=== PATIENT | female | born 1955 | race Caucasian/White ===

== ENCOUNTER → 2020-10-24 13:27 | Outpatient (CLI) | payer MEDICARE, OTHER, SELFPAY ==
--- NOTE | ~2020-10-24 | MM_ITS ---
EXAMINATION: MM screening [facility] BI w er[facility] HISTORY: Screening TECHNIQUE: Craniocaudal and mediolateral oblique 3-D tomosynthesis images were obtained and synthetic 2-D images were generated. CAD analysis was submitted and interpreted. COMPARISON: Comparison to multiple prior studies sequentially, with oldest reviewed study dated 09/21. BREAST PARENCHYMAL COMPOSITION: There are scattered areas of fibroglandular density. FINDINGS: There is no evidence of suspicious mass, calcification, or architectural distortion to sugg est malignancy in either breast. There has been no suspicious interval change. IMPRESSION: 1. No mammographic evidence of malignancy. 2. Recommend routine screening mammography in one year. BI-RADS Category 1: Negative Reviewed, dictated and finalized at location A.
== END ==
PROVIDERS: PCP Internal Medicine; Visit Provider Obstetrics & Gynecology
DX: Z12.31 Encounter for screening mammogram for malignant neoplasm of breast (principal)
CPT/HCPCS: 77063; 77067

== ENCOUNTER → 2021-12-24 15:28 | Outpatient (CLI) | payer MEDICARE, BC, SELFPAY ==
--- NOTE | ~2021-12-24 | XR_ITS ---
EXAM: XR_CERV2-3V_CR DATE: 12/24/2021 15:54 HISTORY: Cervicalgia . COMPARISON: None available. FINDINGS: Craniocervical association and atlantoaxial joint are aligned, with minimal degenerative c hange. ACDF at C5-6 with interbody bone plug. No prevertebral soft tissue swelling. 4 mm retrolisthes is of C4 on C5. Vertebral body heights are maintained. Severe disc space narrowing at C4-5. Multileve l facet sclerosis. IMPRESSION: Grade 2 retrolisthesis and severe degenerative disc disease at C4-5. Uncomplicated appear ing C5-6 ACDF. Multilevel facet arthropathy. Reviewed, dictated and finalized at location K. IMPRESSION: Grade 2 retrolisthesis and severe degenerative disc disease at C4-5 . Uncomplicated appearing C5-6 ACDF. Multilevel facet arthropathy.
--- NOTE | ~2021-12-24 | XR_ITS ---
XR shoulder LT min 2V DATE: 12/24/2021 15:54 INDICATION: Left shoulder pain TECHNIQUE: 4 views COMPARISON: None FINDINGS: There is severe joint space narrowing and prominent humeral head spurring consistent with s evere left glenohumeral osteoarthritis. Normal alignment at the acromioclavicular and glenohumeral joints. No fracture or dislocation, perios teal reaction or bone destruction or abnormal soft tissue calcification is evident. Lower part of cervical hardware for probable surgical spinal fusion is noted on one of the images. IMPRESSION: Severe glenohumeral osteoarthritis Reviewed, dictated and finalized at location B.
== END ==
PROVIDERS: PCP Internal Medicine; Visit Provider Nurse Practitioner Family
DX: M50.321 Other cervical disc degeneration at C4-C5 level (principal); M19.012 Primary osteoarthritis, left shoulder
CPT/HCPCS: 72040; 73030

== ENCOUNTER → 2022-03-19 14:54 | Outpatient (CLI) | payer MEDICARE, SELFPAY ==
--- NOTE | ~2022-03-19 | MM_ITS ---
EXAMINATION: MM screening [facility] BI w erich HISTORY: Screening mammogram TECHNIQUE: Craniocaudal and mediolateral oblique 3-D tomosynthesis images were obtained and synthetic 2-D images were generated. CAD analysis was submitted and interpreted. COMPARISON: 10/24/2020, 06/30/2017, 01/31/2016 BREAST PARENCHYMAL COMPOSITION: There are scattered areas of fibroglandular density. FINDINGS: No suspicious mass, calcification, or architectural distortion are identified in either analilia ast to suggest malignancy. There has been no suspicious interval change. IMPRESSION: 1. No mammographic evidence of malignancy. 2. Recommend routine screening mammography in one year. BI-RADS Category 1: Negative Reviewed, dictated and finalized at location A.
== END ==
PROVIDERS: PCP Internal Medicine; Visit Provider Internal Medicine
DX: Z12.31 Encounter for screening mammogram for malignant neoplasm of breast (principal)
CPT/HCPCS: 77063; 77067

== ENCOUNTER → 2023-06-11 10:14 | Outpatient (CLI) | payer MEDICARE, BC, SELFPAY ==
--- NOTE | ~2023-06-11 | DEXA_ITS ---
Bone Density Report Name: KRISTA GARCIA Age: 68 Sex: Female Ethnicity: White Date of : 1955 Indication: osteopenia; height loss; postmenopausal Referring Provider: Yvette, [place] Study: Bone densitometry was performed. Exam Date: June 11, 2023 Accession number: [id number] Bone Density: Region BMD T-score Z-score Classification AP Spine (L1-L4) 1.066 0.2 2.2 Normal Femoral Neck (Left) 0.754 -0.9 0.9 Normal Total Hip (Left) 0.806 -1.1 0.3 Osteopenia Femoral Neck (Right) 0.709 -1.3 0.5 Osteopenia Total Hip (Right) 0.756 -1.5 -0.1 Osteopenia Total Hip Mean 0.781 -1.3 0.1 Osteopenia World Health Organization criteria for BMD impression classify patients as: Normal (T-score at or above -1.0), Osteopenia (T-score between -1.0 and -2.5), or Osteoporosis (T-score at or below -2.5). 10-year Fracture Risk(1): Major Osteoporotic Fracture 9.3% Hip Fracture 1.0% Reported Risk Factors: [place] (), Neck BMD=0.709, BMI=25.0 (1) FRAX(R) Version 3.08. Fracture probability calculated for an untreated patient. Fracture probability may be lower if the patient has received treatment. Previous Exams: Region Exam Age BMD T-score BMD Change BMD Change Date g/cm2 vs Baseline vs Previous AP Spine(L1-L4) 06/11/2023 68 1.066 0.2 0.057* 0.065* 01/31/2016 60 1.000 -0.4 -0.009 -0.009 12/16/2012 57 1.009 -0.3 Total Hip(Left) 06/11/2023 68 0.806 -1.1 -0.023 -0.007 01/31/2016 60 0.813 -1.1 -0.016 -0.016 12/16/2012 57 0.829 -0.9 Total Hip(Right) 06/11/2023 68 0.756 -1.5 -0.032* -0.013 01/31/2016 60 0.769 -1.4 -0.019 -0.019 12/16/2012 57 0.788 -1.3 *Denotes significance at 95% confidence level, LSC for AP Spine = 0.022 g/cm2, LSC for Total Hip = 0.027 g/cm2 Clinical Information Provided by Patient: Has used the following medications: Vitamin D, Calcium Patient maximum height was 64.0 Menopause Age: 49 No regular weight bearing exercise Drinks caffeinated beverages Onset of menses at age 11 Number of children 2 Impression: The patient has low bone mass, based on the Right Total Hip T-score. The patient has an estimated ten-year risk of hip fracture of 1% and an estimated ten-year risk of major fracture of 9.3%, based on the WHO FRAX algorithm. No significant bone loss was observed. Annalisa
== END ==
PROVIDERS: PCP Internal Medicine; Visit Provider Internal Medicine
DX: M85.852 Other specified disorders of bone density and structure, left thigh (principal); M85.851 Other specified disorders of bone density and structure, right thigh
CPT/HCPCS: 77080

== ENCOUNTER 2025-01-04 10:33 | Inpatient (IN) | payer MEDICARE, SELFPAY ==
[2025-01-04] VITALS (20 sets, daily range): BP systolic 160–188; BP diastolic 76–88; PULSE 66–81; RESP 12–19; TEMP 36.4–36.6; O2SAT 92–98; BMI 25.9
--- NOTE | 2025-01-04 | ECHO_ITS ---
Patient Info Name: Aleyda Tyson Age: 69 years : 1955 Gender: Female Ht: 62 in Wt: 141 lbs BSA: 1.69 m2 HR: 76 bpm BP: 161 / 88 mmHg Heart Rhythm: Sinus Rhythm Technical Quality: Good Exam Date: 01/04/2025 1:40 PM Patient Status: I Admit Date: 01/04/2025 Exam Type: CA echo dop bubble study w con Complete two-dimentional, color flow and Doppler transthoracic echocardiogram is performed with agitated saline and with contrast to opacify the left ventricle and to improve the delineation of the left ventricle endocardial borders. Staff Referring Physician: Khadijah Flynn Nut Steamer: Ariela Garcias Attending Provider: Kulwant Michelle Contrast/Agitated Saline Contrast/Ag. Saline: Definity Amount: 2.00 ml Administered By: Ariela Garcias Existing IV Access: Yes IV Access Condition: patent with no signs of infiltration Contrast/Ag. Saline: Agitated Saline Amount: 20.00 ml Summary 1. Left ventricular chamber dimension is mildly enlarged. 2. Left ventricular systolic function is normal, estimated at 55-60. 3. There is mildly increased left ventricular wall thickness. 4. Left ventricular septal wall motion is abnormal with septal motion related to bundle branch block. 5. The left ventricular diastolic function is grade I diastolic dysfunction. 6. The inferoseptal wall, basal inferior wall, mid inferior wall, basal anteroseptal, and mid anteroseptal are hypokinetic. 7. Left atrial chamber dimension is mildly enlarged. 8. Intact interatrial septum visualized by color flow and agitated saline imaging. 9. There is mild mitral valve regurgitation. 10. There is mild tricuspid valve regurgitation. 11. There is mild pulmonic regurgitation. Left Ventricle Left ventricular chamber dimension is mildly enlarged. Left ventricular systolic function is normal, estimated at 55-60. There is mildly increased left ventricular wall thickness. Left ventricular septal wall motion is abnormal with septal motion related to bundle branch block. The left ventricular diastolic function is grade I diastolic dysfunction. The inferoseptal wall, basal inferior wall, mid inferior wall, basal anteroseptal, and mid anteroseptal are hypokinetic. All other shepherd appear normal. Right Ventricle Right ventricular chamber dimension is normal. Right ventricular systolic function is normal. Left Atria Left atrial chamber dimension is mildly enlarged. Right Atria Right atrial chamber dimension is normal. Atrial Septum Intact interatrial septum visualized by color flow and agitated saline imaging. Aortic Valve The aortic valve is trileaflet. There is mild aortic valve sclerosis. There is no aortic valve stenosis. There is trace aortic valve regurgitation. Pulmonic Valve The pulmonic valve is normal. There is no pulmonic valve stenosis. There is mild pulmonic regurgitation. Mitral Valve The mitral valve has normal leaflets. There is no mitral valve stenosis. There is mild mitral valve regurgitation. Tricuspid Valve The tricuspid valve leaflets are normal. There is no significant tricuspid valve stenosis. There is mild tricuspid valve regurgitation. No pulmonary hypertension, estimated pulmonary arterial systolic pressure is 29 mmHg. Pericardium/Pleural The pericardium appears normal. There is no pericardial effusion. Inferior Vena Cava Normal inferior vena cava with >50% collapse upon inspiration consistent with normal right atrial pressure, 5 mmHg. Aorta The aortic root size at the sinus of Valsalva is normal. Left Ventricular Outflow Tract Name Value Normal LVOT 2D LVOT Diameter 1.8 cm LVOT Doppler LVOT Peak Velocity 106 cm/s LVOT Peak Gradient 5 mmHg LVOT Mean Gradient 3 mmHg LVOT VTI 23 cm LVOT Stroke Volume 54 ml LVOT CO 4.1 l/min LVOT CI 2.4 l/min/m2 Pulmonic Valve Name Value Normal RVOT Doppler RVOT Peak Velocity 60 cm/s RVOT Peak Gradient 1 mmHg PV Doppler PV Peak Velocity 105 cm/s PV Peak Gradient 4 mmHg Mitral Valve Name Value Normal MV Diastolic Function MV E Peak Velocity 35 cm/s MV A Peak Velocity 72 cm/s MV E/A 0.5 MV Decel Time (PW) 365 ms MV Annular TDI MV E/e' (Septal) 5.1 MV E/e' (Lateral) 5.5 MV E/e' (Average) 5.3 Tricuspid Valve Name Value Normal Estimated PAP/RSVP RA Pressure 5 mmHg <=5 PA Systolic Pressure 29 mmHg <36 Aortic Valve Name Value Normal AV Doppler AV Peak Velocity 136 cm/s AV Peak Gradient 7 mmHg AV Area (Cont Eq Aaron) 1.9 cm2 AV DI (Aaron) 0.78 AV Regurgitation 2D LVOT Area 2.4 cm2 Ventricles Name Value Normal LV Dimensions 2D/MM IVS Diastolic Thickness (2D) 0.7 cm 0.6-1.0 LVID Diastole (2D) 4.2 cm 3.8-5.2 LVIW Diastolic Thickness (2D) 1.2 cm 0.6-0.9 LVID Systole (2D) 3.0 cm 2.2-3.5 LVOT Diameter 1.8 cm LV Mass (2D Cubed) 120.94 g 67.00-162.00 LV Mass Index (2D Cubed) 72 g/m2 43-95 Relative Wall Thickness (2D) 0.56 <=0.42 LV Fractional Shortening/Ejection Fraction 2D/MM LV Fractional Shortening (2D) 29 % 27-45 LV EF (2D Teichholz) 56 % LV Diastolic Volume (4C MOD) 97 ml LV EF (4C MOD) 49 % LV Diastolic Volume (2C MOD) 66 ml LV EF (2C MOD) 46 % LV Diastolic Volume (BP MOD) 82 ml 46-106 LV Diastolic Volume Index (BP MOD) 49 ml/m2 29-61 LV Systolic Volume (BP MOD) 45 ml 14-42 LV Systolic Volume Index (BP MOD) 27 ml/m2 8-24 LV EF (BP MOD) 45 % 54-74 LV Diastolic Length (4C) 7.2 cm LV Systolic Length (4C) 5.8 cm LV Stroke Volume (4C MOD) 47 ml Atria Name Value Normal LA Dimensions LA Volume (4C A-L) 29 ml LA Volume (BP A-L) 33 ml RA Dimensions RA Systolic Major Rice Length (4C) 4.1 cm 2.2-2.8 RA Area (4C) 8.5 cm2 <=18.0 Wall Motion Scoring Wall Motion Scoring Index: 1.41 Report Signatures
--- NOTE | ~2025-01-04 | XR_ITS ---
Exam: X-ray chest one view portable Clinical history: Weakness. TECHNIQUE: A single upright AP portable frontal image of the chest was obtained. Comparisons: None available. FINDINGS: There is a 1.3 cm pulmonary nodule in the left midlung. A chest CT is recommended. No pneumothorax. No pleural effusion. No free air under the diaphragm. Small opacities in the lower lungs. IMPRESSION: 1.There is a 1.3 cm pulmonary nodule in the left midlung. A chest CT is recommended. 2. Small opacities in the lower lungs. Differential includes atelectasis/scarring or infiltrates. Reviewed, dictated and finalized at location A. IMPRESSION: 1.There is a 1.3 cm pulmonary nodule in the left midlung. A chest CT is recomme nded. 2. Small opacities in the lower lungs. Differential includes atelectasis/scarri ng or infiltrates.
--- NOTE | ~2025-01-04 | CT_ITS ---
EXAMINATION: CT brain wo con DATE: 01/04/2025 10:54 INDICATION: Weakness TECHNIQUE: Computed tomography (CT) of the head was performed without intravenous contrast. The dose- length product was 605.33 mGy-cm. COMPARISON: None FINDINGS: No acute intracranial hemorrhage. No mass effect. No hydrocephalus. Visualized paranasal sinuses and mastoid air cells are clear. IMPRESSION: 1. No acute intracranial hemorrhage. No mass effect. Reviewed, dictated and finalized at location A.
--- NOTE | ~2025-01-04 | MR_ITS ---
EXAMINATION: MR brain/brain stem wo/w con DATE: 01/05/2025 08:43 INDICATION: Transient ischemic episode TECHNIQUE: Magnetic resonance imaging (MRI) of the brain and brainstem was performed without intraven ous contrast. Sequences included sagittal and axial T1-weighted SE, axial diffusion-weighted FS SE, a xial 3D SWAN, axial T2-weighted FLAIR, and axial T2-weighted FSE. Postcontrast axial and coronal T1-w eighted SE was obtained. Apparent diffusion coefficient (ADC) maps were created. COMPARISON: Head CT and CT angiogram dated 01/04/2025 FINDINGS: There are no areas of restricted diffusion to suggest acute infarction. No intracranial hemorrhage or abnormal intracranial mass lesion. There are scattered areas of nonspecific increased T2-weighted si gnal intensity in the cerebral white matter, predominantly involving the deep and periventricular whi te matter. There are no intraparenchymal signal abnormalities seen on the other pulse sequences. The ventricles are symmetric and normal in size. There are no abnormal extra-axial fluid collections. Willie w voids are seen in the cerebral arteries on the T2-weighted sequences consistent with their expected patency. Visualized orbits and soft tissues are unremarkable. There are no areas of abnormal enhance ment on the post contrast images. IMPRESSION: 1. Normal for age brain MR with no acute intracranial process or abnormally enhancing brain lesions. Reviewed, dictated and finalized at location A. IMPRESSION: 1. Normal for age brain MR with no acute intracranial process or abnormally enh ancing brain lesions.
--- NOTE | ~2025-01-04 | CT_ITS ---
EXAMINATION: CTA brain carotid DATE: 01/04/2025 10:57 CDT INDICATION: Weakness TECHNIQUE: Computed tomographic angiography (CTA) of the head was performed without and with 100 mL O mnipaque-350 intravenous contrast. The dose-length product was 981.39 mGy-cm. Volume-rendered and max imum intensity projection 3D reconstructions of the intracranial arteries were created by the technol ogricardo on a separate workstation. COMPARISON: None. FINDINGS: Anterior cerebral arteries, middle cerebral arteries and posterior cerebral arteries are patent. Basi lar artery and vertebral arteries are grossly unremarkable. Mild atherosclerotic disease in the haresh nous portions of bilateral internal carotid arteries. IMPRESSION: 1. Unremarkable CTA of the brain Reviewed, dictated and finalized at location A.
--- NOTE | 2025-01-04 10:42 | ECG_ITS ---
Test Date: 2025-01-04 11:00:27 Measurements Intervals [place] Rate: 75 P: 70 WA: 164 QRS: -24 QRSD: 128 T: 61 QT: 394 QTc: 442 Interpretive Statements SINUS RHYTHM LEFT BUNDLE BRANCH BLOCK ABNORMAL ECG No previous ECG available for comparison Electronically Signed On 01-04-2025 11:39:45 CDT by Al Zee D.O.
--- OUTSIDE RECORDS SUMMARY | 2025-01-04 10:45 | XMS_ITS | Clinical Summary ---
Author Organization [facility] Care Team Providers Care Melter Supervisor Name Role Phone Unavailable Primary Care Provider Unavailabl e Immunizations Immunization Administration Dates Next Due Covid-19, Mrna, Lnp-s, Pf, 30 Mcg/0.3 Ml Dose (P fizer) 03/01/2021 Social History Tobacco Use Types Packs/Day Years Used Date Smoking Tobacco: Never Assessed Comments Unknown Sex and Gender Information Value Date Recorded Sex Assigned at Not on file Legal Sex Female 11:27 PM CDT Gender Identity Not on file Sexual Orientation Not on file Plan of Treatment Health Maintenance Due Date Last Done Comments Hepatitis C Virus (HCV) Screening 1955 TdaP Immunization 1955 Cologuard 1999 Colonoscopy 1999 Colorectal Cancer Screening 1999 Immunochemical Fecal Occult Blood 1999 Zoster Immunization (2 of 3) 06/19/2014 04/24/2014 SARS-COV-2 Immunization ( season) 2024 03/01/2021, 08/06/2020, 07/15/2020 Influenza Immunization (#1) 01/23/202501/24, 02/20/2019, 02/23/2018, Additional history exists Respiratory Syncytial Virus (RSV) Immunization (Adult) (1 - 1-dose 75+ series) 2029 Pneumococcal Immunization (50+ years) Completed 01/11/2021, 08/01/2019 Hepatitis B Immunization Aged Out No longer eligible based on patient's age to complete this topic Human Papillomavirus (HPV) Immunization Aged Out No longer eligible based on patient's age to complete this topic Meningococcal Immunization (ACWY) Aged Out No longer eligible based on patient's age to complete this topic Rotavirus Immunization Aged Out No lo nger eligible based on patient's age to complete this topic
--- OUTSIDE RECORDS SUMMARY | 2025-01-04 10:45 | XMS_ITS | Encounter Summary ---
Author Organization [facility] Healthcare Address [address] [place] [address] Care Team Providers Care Stripper Latex Name Role Phone Jurgen Crawford MD Primary Care Provider Arielle Duran MD Unavailable [phone] Reason for Visit * Reason Onset Date Comments Medical Question/Miscellaneous 01/04/2025 Encounter Details Date Type Department Care Team (Late st Contact Info) Description 01/04/2025 Telephone [facility] Primary Care at [address] [place] [address] Jurgen Crawford MD [address] [place] [address] [address] [place] [address] Medical Question/Miscellaneous Social History Tobacco Use Types Packs/Day Years Used Date Smoking Tobacco: Former Smokeless Tobacco: Never Alcohol Use Standard Drinks/Week Comments No 0 (1 standard drink = 0.6 oz pur e alcohol) AUDIT-C Answer Date Recorded Q1: How often do you have a drink containing alcohol? Never 03/30/2023 Q2: How many drinks containi ng alcohol do you have on a typical day when you are drinking? Patient does not drink Q3: How often do you have si x or more drinks on one occasion? Never 03/30/2023 PHQ-2 Answer Date Recorded PHQ-2 Total Score (If total score is 3 or more points, staff should administer the PHQ-9) 0 10/10/2024 Personal Safety Answer Date Recorded Have you ever been in or are you currently in a harmful physical or emotional relationship or is someone making you feel afraid or unsafe? 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 Patient wants to make sure Dr Crawford will get her ER visit info from [place]. Does message need to be routed? Yes-Action Needed * Telephone Encounter - Lucreica Quintero - 01/04/2025 10:09 AM CDT Medical Question/Miscellaneous Caller???s Concern: Flor, on HIPAA, stated her mother is not being honest about her symptoms and is also having feet and ankle cramps. Stated she will call back with the patient to report the symptoms. Does message need to be routed? Yes-Action Needed documented in this encounter Plan of Treatment Not on file documented as of this encounter Visit Diagnoses Not on filedocumented in this encounter Care Teams Stripper Latex Relationship Specialty Start Date End Date Jurgen Crawford MD PCP - General 08/22/16 Arielle Duran MD Referring Physician Rheumatology 01/30/22 documented as of this encounter
--- OUTSIDE RECORDS SUMMARY | 2025-01-04 10:45 | XMS_ITS | Clinical Summary ---
Author Organization [facility] A Address [address] [place] [address] Care Team Providers Care Senior Reliability Engineer Name Role Phone Jurgen Crawford MD Primary Care Provider Arielle Duran MD Unavailable [phone] Allergies Active Allergy Reactions Criticality Noted Date Comments Amoxicillin-Pot Clavulanate Other (See comments) Low 06/19/2023 Yeast Infection Cortisone Flushing (skin),Anxiety,Othe r (See comments) High Reaction: Flushing, Anxiety, Bradycardia, Meloxicam Other (See comments) Reaction: rash on tongue, , , Reaction: Mouth Sores, Oxaprozin Anxiety Reaction: Anxiety, Oxycodone Unknown 01/21/2018 Prednisone Other (See comments),Rash Reaction: red, rash, Sulfa (Sulfonamide Antibiotics) Other (See comments),Anaphylax is High Reaction: Other, Anaphylaxis, Sulfanilamide Medications b complex vitamins (VITAMINS B COMPLEX) tablet 0 2 Active cholecalcifero l (VITAMIN D3) 2,000 unit capsule 0 2 Active loratadine 10 mg capsule Active azelastine (ASTELIN) 137 mcg (0.1 %) nasal spray ADMINISTER 2 SPRAYS INTO EACH NOSTRIL 2 TIMES A DAY. 30 mL 11 1 Active naloxone (NARCAN) 4 mg/actuation spray,non-aero carlton Administer 1 spray into affected nostril(s) as needed for opioid reversal or respiratory depression Call 911. Administer a single spray in one nostril. Repeat every 3 minutes as needed if no or minimal response. 1 each 1 2 Active hydroxychloroq uine (PLAQUENIL) 200 mg tablet 3 Active benzonatate (TESSALON) 200 mg capsuleIndicat ions:Acute URI Take 1 capsule (200 mg total) by mouth 3 (three) times a day as needed for cough 30 capsule 4 Active aspirin 81 mg enteric coated tablet Take 1 tablet (81 mg total) by mouth daily 5 06/28/19 26 Active ALPRAZolam (XANAX) 0.5 mg tablet TAKE 1 TABLET BY MOUTH THREE TIMES DAILY NEEDED FOR ANXIETY 90 tablet 5 5 Active omeprazole (PriLOSEC) 40 mg capsule TAKE 1 CAPSULE(40 MG) BY MOUTH DAILY BEFORE BREAKFAST 100 capsule 5 Active tiZANidine (ZANAFLEX) 2 mg tablet Take 1 tablet (2 mg total) by mouth every 6 (six) hours as needed for muscle spasms 60 tablet 3 5 Active metoprolol XL (TOPROL-XL) 100 mg 24 hr tablet TAKE 1 TABLET BY MOUTH EVERY DAY 90 tablet 1 5 03/05/20 25 Active HYDROcodone-ac etaminophen (NORCO) 5-325 mg per tabletIndicati ons:Pain Take 1 tablet by mouth every 6 (six) hours as needed for pain Do not take with alprazolam 30 tablet 5 02/11/20 25 Active HYDROcodone-ac etaminophen (NORCO) 5-325 mg per tabletIndicati ons:Pain Take 1 tablet by mouth every 6 (six) hours as needed for pain Do not take with alprazolam 30 tablet 5 12/12/19 25 Discontin ued(Reord er) Active Problems Problem Noted Date Diagnosed Date 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 Discussed the risks of hypertension. Arthralgia of elbow 12/26/2013 Spondylosis of lumbosacral region 10/08/2013 Overview (08/27/2016): LUMBOSACRAL SPONDYLOSIS Osteoarthritis of cervical spine 10/08/2013 Overview (08/27/2016): CERVICAL SPONDYLOSIS Left bundle branch block (LBBB) 10/23/2009 Overview (08/27/2016): Bundle branch block left Resolved Problems Problem Noted Date Diagnosed Date Resolved Date Bilateral hearing loss due t o cerumen impaction 10/26/2018 10/26/2018 Assessment & Plan (10/26/2018 4:05 PM CDT): Successful cerumen debridement today in clinic. Pt was encouraged to avoid use of OTC Q-tips with discussion of home cleansing techniques as well. Maxillary sinusitis 10/26/2018 10/27/19 19 Assessment & Plan (10/26/2018 3:36 PM CDT): Previous sensitivity to multiple medications. Previously tolerated Ceftin well. Initiating abs along with use of humidifier or vaporizer, antihistamines [id number], nasal rinses, Flonase nasal spray, certainly for sore throat throat lozenges, salt water gargles, and Mucinex with increase fluids to assist with productivity and cough. I also encouraged patient to take antibiotic as prescribed with side effects of medication discussed, to use antibiotics for specific antibiotics as recommended office, and close follow-up outpatient with any worsening or little improvement symptoms. Acute medial meniscus tear of right knee 01/22/2018 11/23/2019 Encounters Date Type Department Care Team Description 01/04/2025 Telephone [facility] Primary Care at [address] [place] [address] Jurgen Crawford MD Medical Question/Miscellaneous 11/01/2024 Orders Only [facility] Primary Care at [address] [place] [phone] Jurgen Crawford MD 11/01/2024 Telephone [facility] Primary Care at [address] [place] [phone] Jurgen Crawford MD Medication Request 10/10/2024 2:30 PM CDT Office Visit [facility] Primary Care at [address] [phone] Jurgen Crawford MD Primary osteoarthritis of right knee (Primary Dx); BMI 23.0-23.9, adult; Benign essential hypertension from Last 3 Months Immunizations Immunization Administration Dates Next Due Flucelvax Influenza Quad 02/22/2018 Influenza, Quad, Adjuvantate d, Intramuscular 03/22/2021 Influenza, Quadrivalent, Rafaela l Culture-based MDCK, Preservative Free, Antibiotic Free, Intramuscular 02/23/2018 Influenza, Quadrivalent, Hig h Dose, Preservative Free, Intrr 02/20/2023,03/08/2022,02/20/2020 Influenza, Quadrivalent, Spl it, Preservative Free, Intramuscular 03/30/2016,04/15/2015 Influenza, Split 07/07/2011 Influenza, Trivalent, Adjuva nted, Intramuscular 03/18/2024 Influenza, Trivalent, High D ose, Split, Preservative Free, Intramuscular 02/20/2019 Influenza, Trivalent, IM (MDV) 05/09/2013,2012 Influenza, Trivalent, Preser vative Free, Intramuscular 03/04/2017 Influenza, Unspecified 01/28/2024(Deferr ed: Patient Refused),01/17/2022(Deferred: Patient Refused),02/20/2020,02/20/2019, 017 Pfizer SARS-CoV-2 Monovalent Vaccination (12+ Yrs) PURPLE 08/06/2020,07/15/2020 Pneumococcal Conjugate PCV 13 08/01/2019 Pneumococcal Polysaccharide PPV23 01/11/2021 RSV Vaccine, Pref, Recombina nt, Subunit, Adjuvanted, PF, IM (Arexvy) 03/18/2024 ZOSTER LIVE 04/24/2014 Surgical History Surgery Date Site/Laterality Comments OTHER SURGICAL HISTORY 2001 ulnar nerve decompression OTHER SURGICAL HISTORY 2001 radial nerve decompression CARPAL TUNNEL RELEASE Right Carpal tunnel release BACK SURGERY Back surgery OTHER SURGICAL HISTORY 2013 back injury: ER Visit OTHER SURGICAL HISTORY sprus removed from elbow Medical History Medical History Date Comments Hx Other Medical 2001 c spine surgery 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 Hx Other Medical 02-ortho Hx Other Medical Abnormal heartb eat Hx Other Medical Neck surgery Hx Other Medical Ulnar nerve dec ompression Gastroesophageal reflux disease GERD Hx Other Medical back injury Hx Other Medical back surg; Comm ents: LNP 07/20/2014 - Family History Medical History Relation Name Comments Diabetes Brother 1 Diabetes mellit us; Heart disease Brother 2 Heart disease; Hypertension Brother 3 Hypertension; Depression Father Depression; Other Father coronary thromb osis; Depression Mother Depression; Diabetes Mother Diabetes mellit us; Heart failure Mother Congestive hea rt failure; Hypertension Mother Hypertension; Diabetes Other 1 Family history of Diabetes mellitus; Heart disease Other 2 Family history of Heart disease; Hypertension Other 3 Family history of Hypertension; Relation Name Status Comments Brother 1 Brother 2 Brother 3 Father Mother Other 1 Other 2 Other 3 Social History Tobacco Use Types Packs/Day Years Used Date Smoking Tobacco: Former Smokeless Tobacco: Never Tobacco Cessation:Counseling Given: Not Answered Alcohol Use Standard Drinks/Week Comments No 0 [...] on file Legal Sex Female 11:55 PM RESIDENCY DIRECTOR Gender Identity Not on file Sexual Orientation Not on file Obstetrics History Last Filed Vital Signs Vital Sign Reading Time Taken Comments Blood Pressure 142/82 10/10/2024 2:17 PM CDT Pulse 76 10/10/2024 2:17 PM CDT Temperature 36.6 C (97.8 F) 10/10/2024 2:17 PM CDT Respiratory Rate 16 10/10/2024 2:17 PM CDT Oxygen Saturation 95% 10/10/2024 2:17 PM CDT Inhaled Oxygen Concentration - - Weight 60.3 kg (133 lb) 10/10/2024 2:17 PM CDT Height 160 cm (5' 3) 10/10/2024 2:17 PM CDT Body Mass Index 23.56 10/10/2024 2:17 PM CDT Plan of Treatment Health Maintenance Due Date Last Done Comments DTaP/Tdap/Td Vaccine (1 - Tdap) 1965 Hepatitis B Screening 02/15/1972 Zoster Vaccine (1 of 2) 06/19/2014 04/24/2014 Breast Cancer Screening-Mammogram 03/19/2023 03/19/2022, 10/24/2020, 01/31/2016 Colon Cancer Screening-Colonoscopy 07/30/2023 07/29/2013, 07/29/2013 Covid-19 Vaccine (7 - Pfizer risk season) 2024 04/01/2024, 04/10/2023, 11/22/2021, Additional history exists Influenza Vaccine (#1) 2025 , 02/20/2023, 03/08/2022, Additional history exists Well Visit 65+ 01/27/2025 01/28/2024, 0801/2023, 01/17/2022, Additional history exists Osteoporosis Screening-Bone Density Scan 06/11/2025 06/11/2023, 01/31/2016 Depression Screening 10/10/2025 10/10/2024, 07/08/2024, 06/28/2024, Additional history exists Fall Risk Assessment 10/10/2025 10/10/2024, 07/08/2024, 06/28/2024, Additional history exists Colon Cancer Screening-CT Colonography Discontinued 07/29/2013, 07/29/2013 Colon Cancer Screening-DNA Stool Discontinued 07/30/19 14, 07/29/2013 Colon Cancer Screening-FIT Discontinued 07/29/2013, Colon Cancer Screening-Sigmoidoscopy Discontinued 07/29/2013, 07/29/2013 Hepatitis C Screening Completed 06/09/2016, 017 Pneumococcal vaccine 65+ Completed 01/11/2021, 01/2020 Procedures Procedure Name Priority Date/Time Associated Diagnosis Comments DEXA AXIAL SKELETON BONE DENSITY 1 OR MORE SITES Schedule Routine, Read Routine (OP Routine) 06/11/2023 SCREENING MAMMOGRAM W ASTER Schedule Routine, Read Routine (OP Routine) 03/19/2022 SERUM HEPATITIS C AB Routine 06/09/2016 9:08 AM RESIDENCY DIRECTOR HM COLONOSCOPY Routine 07/29/2013 from Last 3 Months or Most Recently Relevant to Health Maintenance Results * Dexa Axial Skeleton Bone Density 1 or 2 Site (06/11/2023) Anatomical Region Laterality Modality Body N/A Radiographic Asiya ging Generic External Data Provider IMG DXA PROCEDURE S Final Result * Screening Mammogram W Aster (03/19/2022) Anatomical Region Laterality Modality Breast N/A Mammography us Jurgen Crawford MD IMG MAMMO PROCEDURES Fi nal Result * Serum Hepatitis C ab (06/09/2016 9:08 AM RESIDENCY DIRECTOR) HCV ab NON-REACTI VE NON-REACTI VE CDR HISTORICAL RESULTS Hepatitis signal to cutoff ratio 0.02 <1.00 CDR HISTORICAL RESULTS Serum 06/09/2016 9:08 AM RESIDENCY DIRECTOR Narrative CDR HISTORICAL RESULTS - 06/10/2016 9:00 AM RESIDENCY DIRECTOR Test performed at [facility] [address] [place] [address] Director: SILVIA GUERRERODO,MPH Historical Provider LAB BLOOD ORDERABLES Tracy l Result CDR HISTORICAL RESULTS * HM COLONOSCOPY (07/29/2013) Colonoscopy Normal us Historical Provider MD HEALTH MAINTENANCE Final Result from Last 3 Months or Most Recently Relevant to Health Maintenance Insurance MEDICARE [facility] [employer] [place] [address] [facility] MEDICARE SUPPLEMENT Care Teams Senior Reliability Engineer Relationship Specialty Start Date End Date Jurgen Crawford MD PCP - General 08/22/16 Arielle Duran MD Referring Physician Rheumatology 01/30/22
--- OUTSIDE RECORDS SUMMARY | 2025-01-04 10:45 | XMS_ITS | Patient Health Record ---
Author Organization [facility] Address [address] [place], [place] [id number] Care Team Providers Care Nitrating Acid Mixer Name Role Phone OMEGA OJEDA Unavailable [phone] Jurgen Crawford Unavailable Unavailable Reason For Referral No Information Medications Medication SIG (Take, Route, Frequency, Duration) Notes Start Date End Date Status diclofenac sodium 0.01 MG/MG Topical Gel CUTANEOUS diclofenac sodium 0.01 MG/MG Topical GelOriginal Medicationdiclofenac sodium 0.01 MG/MG Topical Gel *Reorder from [employer] for eRx and Interaction Alerts* 07/06/2017 Active Plan Of Treatment No Information Insurance Providers Payer Name Payer Address Payer Phone Subscriber Number Group Number Insured Name Patient Relationship to Insured Coverage Start Date Coverage End Date [employer] [address] JONATAN CHISHOLM [phone] [id number] KRISTA GARCIA Self - patient is the insured
[2025-01-04 10:52] LABS: Hematocrit 44.3 % (37.0-47.0); Hemoglobin 13.9 g/dL (12.0-15.0); Immature Granulocyte Percent A 0.2 % (0-0.5); Lymphocytes Absolute Auto 1.54 K/mm3 (0.9-3.2); Mean Corpuscular HGB Conc 31.4 g/dl (32-36); Mean Corpuscular Hemoglobin 25.6 pg (26-34); Mean Corpuscular Volume 81.4 fl (80-100); Nucleated Red Blood Cells Absolute Auto 0.000 K/mm3 (0.0-0.012); Nucleated Red Blood Cells Perc 0.0 % (0.0-0.2); Platelet Count Result 208 k/mm3 (150-375); Red Blood Count 5.44 M/mm3 (4.2-5.4); White Blood Count 8.0 K/mm3 (4.5-10.0)
[2025-01-04 10:53] LABS: Estimated Glomerular Filt Rate > 60
[2025-01-04 11:01] LABS: Alanine Aminotransferase 26 U/L (6-35); Albumin Level 4.5 g/dL (3.5-5.1); Alkaline Phosphatase 90 U/L (38-126); Anion Gap 8 mmol/L (4-12); Aspartate Amino Transferase 39 U/L (14-36); Bilirubin,Total 0.4 mg/dL (0.2-1.3); Blood Urea Nitrogen 20 mg/dL (7-17); Calcium 9.5 mg/dL (8.4-10.2); Carbon Dioxide 27 mmol/L (22-30); Chloride 103 mmol/L (98-107); Estimated Glomerular Filt Rate > 60; Glucose 100 mg/dL (65-110); Potassium 5.0 mmol/L (3.4-5.0); Sodium 138 mmol/L (137-145); Total Protein 7.6 g/dL (6.3-8.2)
[2025-01-04 11:03] LABS: INR 1.0; Partial Thromboplastin Time 25.1 Seconds (22.3-36.8); Prothrombin Time 13.2 Seconds (11.1-14.7)
--- NOTE | 2025-01-04 11:11 | ED_ITS ---
HPI - Neuro Symptoms/Deficit General Chief Complaint: Suspected CVA Stated Complaint: I had a stroke at work Time Seen by Provider: 01/04/25 10:37 History of Present Illness HPI Narrative: This is a 69-year-old female presenting for stroke symptoms. At 9:45 a.m. the patient developed slurred speech and facial droop. This lasted for 15 minutes before resolving. She then presented to the hospital for evaluation. At this time she is asymptomatic. Patient states she has believe that she has had TIAs twice in past due to word- finding difficulty that resolved within 10-15 minutes. Related Data Home Medications ?Medication ?Instructions ?Recorded ?Confirmed ?Last Taken ?Type alprazolam 0.5 mg tablet (Xanax) 0.5 mg PO DAILY 04/30/23 04/30/23 Unknown History hydrocodone 5 mg-acetaminophen 325 1 tablet PO QHS PRN 04/30/23 04/30/23 Unknown History mg tablet loratadine 10 mg tablet (Claritin) 10 mg PO DAILY 04/30/23 04/30/23 Unknown History metoprolol succinate 100 mg 100 mg PO DAILY 04/30/23 04/30/23 Unknown History tablet,extended release 24 hr omeprazole 40 mg capsule,delayed 40 mg PO DAILY 04/30/23 04/30/23 Unknown History release Allergies Allergy/AdvReac Type Severity Reaction Status Date / Time hydrocortisone (From Allergy Mild Flushing Verified 04/30/23 09:57 Cortizone-10) oxaprozin Allergy Mild Anxiety Verified 04/30/23 09:57 oxycodone Allergy Mild Anxiety Verified 04/30/23 09:57 prednisone Allergy Mild stomach Verified 04/30/23 09:57 issues Sulfa (Sulfonamide Allergy Mild Unknown Verified 04/30/23 09:57 Antibiotics) meloxicam Allergy Mild Unknown Uncoded 04/30/23 09:57 PMFSH Past Medical History Medical History Inflammatory arthritis Osteoporosis IBS (irritable bowel syndrome) GERD (gastroesophageal reflux disease) Arthritis Anxiety Allergies Surgical History Surgical History No pertinent past surgical history Family History Family History Other Depression Diabetes mellitus Heart disease Hypertension Social History Social History Smoking status: Former smoker Smoking end date: 05/25/92 Alcohol intake: never Substance use: never Substance use type: does not use Lack of Transportation: No Lack of Food: Never True Current Housing: I Have Housing Concerned About Future Housing: No Difficulty Paying Gas/Electric Bills: No Difficulty Paying for Meds: No Currently Unemployed: No Education: Decline to Answer Difficulty w/ Childcare or Family Care: No Living arrangements: with family Gender identity (if verbalized by the patient): Female Exam 2 Narrative: APPEARANCE: No apparent distress. A&O x4 Head: atraumatic. EYES: EOMI, NOSE: Atraumatic NECK: Trachea midline RESPIRATORY: No increased rate of breathing CTAB CARDIOVASCULAR: RRR, no peripheral edema ABDOMINAL: Non-distended MUSCULOSKELETAl: No obvious deformities NEURO: Alert. Cranial nerves 2-12 grossly intact. Sensation light touch, motor function cerebellar function intact for 4 extremities. SKIN:: Warm, dry. Normal color PSYCHIATRIC: Normal affect NIH Stroke Scale/Score (NIHSS) from [email or web address] on 01/04/2025 All calculations should be rechecked by clinician prior to use RESULT SUMMARY: 0 points NIH Stroke Scale INPUTS: 1A: Level of consciousness ?> 0 = Alert; keenly responsive 1B: Ask month and age ?> 0 = Both questi ons right 1C: 'Blink eyes' & 'squeeze hands' ?> 0 = Performs both tasks 2: Horizontal extraocular movements ?> 0 = Normal 3: Visual schmidt ?> 0 = No visual loss 4: Facial palsy ?> 0 = Normal symmetry 5A: Left arm motor drift ?> 0 = No drift for 10 seconds 5B: Right arm motor drift ?> 0 = No drif t for 10 seconds 6A: Left leg motor drift ?> 0 = No drift for 5 seconds 6B: Right leg motor drift ?> 0 = No drif t for 5 seconds 7: Limb Ataxia ?> 0 = No ataxia 8: Sensation ?> 0 = Normal; no sensory l oss 9: Language/aphasia ?> 0 = Normal; no ap hasia 10: Dysarthria ?> 0 = Normal 11: Extinction/inattention ?> 0 = No abn ormality Course Vital Signs Vital signs: Vital Signs Temperature 97.6 F 01/04/25 10:59 Pulse Rate 80 01/04/25 10:59 Respiratory Rate 17 01/04/25 10:59 Blood Pressure 175/76 H 01/04/25 10:59 Pulse Oximetry 96 01/04/25 10:59 Oxygen Delivery Room Air 01/04/25 10:59 Temperature 97.6 F 01/04/25 10:59 Pulse Rate 78 01/04/25 11:03 Respiratory Rate 12 01/04/25 11:03 Blood Pressure 175/76 H 01/04/25 11:03 Pulse Oximetry 97 01/04/25 11:03 Oxygen Delivery Room Air 01/04/25 10:59 MDM - Neuro Symptoms/Deficit MDM Narrative Medical decision making narrative: -Course: 69-year-old female presenting with slurred speech and facial droop. Symptoms have all resolved. NIH of 0. CT brain with no acute findings. CTA of head and neck unremarkable. EKG shows left bundle-branch block. No previous EKG to compare to. Rest her workup within normal limits. Results were discussed with patient. She will be admitted hospital for TIA workup. -DDX includes but is not limited to: TIA, CVA, carotid stenosis or dissection Lab Data 01/04/25 10:43 01/04/25 10:49 Labs: Lab Results 01/04/25 01/04/25 01/04/25 Range/Units 10:39 10:43 10:49 WBC 8.0 (4.5-10.0) K/mm3 RBC 5.44 H (4.2-5.4) M/mm3 Hgb 13.9 (12.0-15.0) g/dL Hct 44.3 (37.0-47.0) % MCV 81.4 (80-100) fl MCH 25.6 L (26-34) pg MCHC 31.4 L (32-36) g/dl RDW 14.0 (11.5-14.5) % Plt Count 208 (150-375) k/mm3 MPV 10.4 (7.4-10.4) fl Immature Gran % (Auto) 0.2 (0-0.5) % Neut % (Auto) 65.5 (45.5-73.1) % Lymph % (Auto) 19.2 (18.3-44.2) % [place] % (Auto) 13.0 H (2.6-8.5) % Eos % (Auto) 0.9 (0-4.4) % Baso % (Auto) 1.2 (0.2-1.2) % Lymph # (Auto) 1.54 (0.9-3.2) K/mm3 [place] # (Auto) 1.0 H (0.1-0.6) K/mm3 Eos # (Auto) 0.1 (0-0.3) K/mm3 Baso # (Auto) 0.1 (0.0-0.1) K/mm3 Abs Immat Gran (auto) 0.02 (0.00-0.031) K/mm3 Absolute Neuts (auto) 5.2 (1.3-6.7) K/mm3 Absolute Nucleated RBC 0.000 (0.0-0.012) K/mm3 Nucleated RBC % 0.0 (0.0-0.2) % PT 13.2 (11.1-14.7) Seconds INR 1.0 APTT 25.1 (22.3-36.8) Seconds Sodium 138 (137-145) mmol/L Potassium 5.0 (3.4-5.0) mmol/L Chloride 103 (98-107) mmol/L Carbon Dioxide 27 (22-30) mmol/L Anion Gap 8 (4-12) mmol/L BUN 20 H (7-17) mg/dL Creatinine 0.74 0.90 (0.7-1.0) mg/dL Estim Creat Clear Calc Not Reportable Not Reportable Estimated GFR > 60 > 60 (59 - ) Glucose 100 (65-110) mg/dL POC Capillary Glucose 107 H (65-105) mg/dl Calcium 9.5 (8.4-10.2) mg/dL Total Bilirubin 0.4 (0.2-1.3) mg/dL AST 39 H (14-36) U/L ALT 26 (6-35) U/L Alkaline Phosphatase 90 (38-126) U/L Troponin I < 0.012 (0.000-0.034) ng/mL Total Protein 7.6 (6.3-8.2) g/dL Albumin 4.5 (3.5-5.1) g/dL Discharge Plan Discharge Clinical Impression: Brain TIA Patient Disposition: Still a Patient Condition: Stable Patient Language: Urugu[place] Prescriptions: No Action metoprolol succinate 100 mg tablet extended release 24 hr 100 mg PO DAILY loratadine [Claritin] 10 mg tablet 10 mg PO DAILY alprazolam [Xanax] 0.5 mg tablet 0.5 mg PO DAILY hydrocodone-acetaminophen 5-325 mg tablet 1 tablet PO QHS PRN omeprazole 40 mg capsule,delayed release(DR/EC) 40 mg PO DAILY Follow-up/Referrals: Yvette,Jurgen Hills MD [Primary Care Provider] -
[2025-01-04 11:13] LABS: Troponin I < 0.012 ng/mL (0.000-0.034)
--- NOTE | 2025-01-04 12:49 | PM.IMHP ---
H&P: HPI History of Present Illness Date/Time: 01/04/25 16:30 Chief Complaint: Slurred Speech, Facial Droop Narrative: 69 y/o F presents here with inflammatory arthritis, osteoporosis, IBS, GERD, emphysema, and anxiety presents here with slurred speech and a facial droop. The patient presents here from work via personal vehicle for further evaluation of stroke-like symptoms on 01/04. She reports a last known well at 9:45 a.m.. She reports she was at work when she developed sudden onset of slurred speech and a right facial droop around 9:50 a.m. She reports the symptoms lasted for approximately 15 minutes and resolved prior to her arrival to the emergency department. She denies a previous history of CVA. However she believes she may have had 2 prior TIAs during which she experienced word-finding difficulty that lasted for approximately 30 seconds and resolved spontaneously. She was not evaluated at that time. Most recent occurrence in 2022. She currently denies any neurological deficits and remains at her baseline. Initial VS at presentation: 97.6? F, HR 80, R 17, 175/76, and 96% on RA. ED workup showed: No leukocytosis, no anemia, normal coags, no significant electrolyte derangements, glucose 107, creatinine 0.9 and GFR >60, initial troponin negative. Head CT showed no acute intracranial hemorrhage or mass effect. Head/neck CTA was unremarkable. CXR showed a 1.3 cm pulmonary nodule in the left mid lung and small opacities in the lower lungs. Review of Systems Review of Systems: All systems reviewed & are unremarkable except as noted in HPI and below PMFSH Past Medical History Medical History Inflammatory arthritis Osteoporosis IBS (irritable bowel syndrome) GERD (gastroesophageal reflux disease) Arthritis Anxiety Allergies Surgical History Surgical History No pertinent past surgical history Family History Family History Other Depression Diabetes mellitus Heart disease Hypertension Social History Social History Smoking packs per day: 1 Smoking cigarettes per day: 20.0 Years smoked: 20 Smoking pack-years: 20.00 Smoking status: Former smoker Alcohol intake: never Substance use: never Substance use type: does not use Lack of Transportation: No Lack of Food: Never True Current Housing: I Have Housing Concerned About Future Housing: No Difficulty Paying Gas/Electric Bills: No Difficulty Paying for Meds: No Currently Unemployed: No Education: High School Diploma/GED Difficulty w/ Childcare or Family Care: No Living arrangements: with family Gender identity (if verbalized by the patient): Female Spiritual care concerns: No Meds Home Medications and Allergies Home Medications ?Medication ?Instructions ?Recorded ?Confirmed ?Type alprazolam 0.5 mg tablet (Xanax) 1 mg PO HS 04/30/23 01/04/25 History hydrocodone 5 mg-acetaminophen 325 1 tablet PO Q4-6H pain 04/30/23 01/04/25 History mg tablet loratadine 10 mg tablet (Claritin) 10 mg PO DAILY 04/30/23 01/04/25 History metoprolol succinate 100 mg 100 mg PO DAILY 04/30/23 01/04/25 History tablet,extended release 24 hr omeprazole 40 mg capsule,delayed 40 mg PO DAILY 04/30/23 01/04/25 History release cholecalciferol (vitamin D3) 25 25 mcg PO DAILY 01/04/25 01/04/25 History mcg (1,000 unit) capsule ferrous sulfate 325 mg (65 mg 325 mg PO EVERY OTHER DAY 01/04/25 01/04/25 History iron) tablet magnesium citrate 100 mg capsule 500 mg PO DAILY 01/04/25 01/04/25 History tizanidine 2 mg tablet 1 mg PO HS PRN muscle spasticity 01/04/25 01/04/25 History Allergies Allergy/AdvReac Type Severity Reaction Status Date / Time Sulfa (Sulfonamide Allergy Severe Anaphylaxis Verified 01/04/25 16:52 Antibiotics) oxycodone Allergy Mild Confusion Verified 01/04/25 16:52 meloxicam Allergy Mild Rash Uncoded 01/04/25 16:53 Vital Signs Vital Signs - 24 hr 01/04/25 10:59 01/04/25 11:03 01/04/25 11:03 Temperature 97.6 F Pulse Rate 80 77 77 Respiratory Rate 17 15 Blood Pressure 175/76 H 175/76 H Pulse Oximetry 96 97 Oxygen Delivery Room Air 01/04/25 11:03 Temperature Pulse Rate 78 Respiratory Rate 12 Blood Pressure 175/76 H Pulse Oximetry Oxygen Delivery Exam Const: General: comfortable and no acute distress Other: , female, nontoxic appearance HENMT: Face/Nose/Sinus: Normal nares present Mouth: Yes moist mucous membranes Eyes: General: appearance normal, both eyes and all related structures Sclera: sclerae normal Pupils: Equal, round and reactive pupils present EOM: EOMs intact bilaterally Resp: Effort & Inspection: normal respiratory effort Auscultation: clear to auscultation bilaterally Cardio: Rate: regular rate Rhythm: regular rhythm Other: S1-S2 present without murmur, rub, ectopy GI: Other: Abdomen soft, nondistended, nontender. Normoactive bowel sounds in all quadrants. Skin: General skin exam: normal color and no rashes or lesions noted Wounds: no wounds Neuro: Speech: normal speech Motor exam (neuro): 5/5 motor strength present throughout Sensory Exam: normal sensation Other: A&O x4, NIHSS 0 Extrem: General: normal to inspection Psych: Mental Status: mental status grossly normal Affect: normal affect Other: Good insight and judgment, pleasant H&P: Results Labs Labs: Short CBC 01/04/25 Range/Units 10:43 WBC 8.0 (4.5-10.0) K/mm3 Hgb 13.9 (12.0-15.0) g/dL Hct 44.3 (37.0-47.0) % Plt Count 208 (150-375) k/mm3 BMP 01/04/25 01/04/25 10:43 10:49 Sodium 138 Potassium 5.0 Chloride 103 Carbon Dioxide 27 BUN 20 H Creatinine 0.74 0.90 Glucose 100 Calcium 9.5 Cardiac Enzymes 01/04/25 Range/Units 10:43 Troponin I < 0.012 (0.000-0.034) ng/mL Liver Function 01/04/25 Range/Units 10:43 Total Bilirubin 0.4 (0.2-1.3) mg/dL AST 39 H (14-36) U/L ALT 26 (6-35) U/L Alkaline Phosphatase 90 (38-126) U/L Albumin 4.5 (3.5-5.1) g/dL Assessment and Plan Assessment and plan (1) Brain TIA: Code(s): G45.9 - Transient cerebral ischemic attack, unspecified Status: Acute Assessment and Plan: Last known well was at 9:45 a.m. on 01/04. New deficits of slurred speech and a right facial droop noted at XX on 01/04. Lasted for approximately 15 minutes and symptoms completely resolved. - admission for observation and telemetry - not candidate for thrombolytics or thrombectomy as the patient's symptoms have resolved - CXR, head CT, CTA were unremarkable - neurology consulted - brain MRI w/wo ordered - echo w/Bubble ordered - neuro checks Q4 - monitor daily labs, check lipid panel and A1C - start Atorvastatin 40 mg PO, Plavix 75 mg PO, ASA 81 mg - consider 30 day event monitoring at discharge (2) Elevated blood pressure reading with diagnosis of hypertension: Code(s): I10 - Essential (primary) hypertension Status: Acute Assessment and Plan: - Patient reports her blood pressure was checked prior to arrival to the emergency department, 110/60. Upon arrival the patient's blood pressure was 175/76. She has no prior history of hypertension. Patient does not sore stress from being here. Plan to monitor blood pressure, if BP increases to a systolic greater than 200 will start hypertension medications. Patient will need outpatient follow-up on her blood pressure. - Patient is on metoprolol for PVCs, will continue. Plan Diet: Regular GI Prophylaxis: n/a DVT Prophylaxis: SCDs IV fluids: None Lines/Tubes: Peripheral IV Code Status: Full code Quality VTE Prophylaxis VTE prophylaxis: mechanical ordered Hospitalist [facility] Advance Care Plan I have confirmed that the patient's Advanced Care Plan is present, code status is documented, or surrogate decision maker is listed in patient medical record.: Yes Medication Reconciliation I have utilized all available resources to obtain, update and review the patients current medications (includes all prescriptions, OTC, herbals, cannabis, and nutritional supplements).: Yes
[2025-01-04] MEDS: PERFLUTREN LIPID MICROSPHERES 1.5 ML VIAL DILUTED TO 10 ML TOTAL VOLUME IV PUSH (14:16)
--- NOTE | 2025-01-04 14:16 | IVDEFINITY ---
Prior to administration of IV Definity the patient was educated on the risks and benefits of the imaging enhancing agent including potential adverse side effects. The patient verbalized understanding. Allergies were verified. No exclusion criteria were identified and at least one of the following inclusion criteria were met: 1) physician request, 2) patient technically difficult to image (per the [place] [employer] guidelines of two or more segments not discernable within the apical view), or 3) questionable left ventricular function. ?
[2025-01-04] MEDS: ATORVASTATIN 40 MG TABLET PO (16:49)
[2025-01-04] MEDS: TIZANIDINE HCL 1 MG TABLET PO (17:27)
[2025-01-04] MEDS: PANTOPRAZOLE 40 MG TABLET PO (20:24)
[2025-01-04] MEDS: ALPRAZolam (*CRX) 0.5 MG TABLET 1 MG PO (20:24)
[2025-01-05] VITALS (7 sets, daily range): BP systolic 163; BP diastolic 77; PULSE 63–89; RESP 16; TEMP 36.5; O2SAT 95–96
[2025-01-05 04:26] LABS: Hematocrit 45.3 % (37.0-47.0); Hemoglobin 13.9 g/dL (12.0-15.0); Immature Granulocyte Percent A 0.3 % (0-0.5); Lymphocytes Absolute Auto 1.51 K/mm3 (0.9-3.2); Mean Corpuscular HGB Conc 30.7 g/dl (32-36); Mean Corpuscular Hemoglobin 25.3 pg (26-34); Mean Corpuscular Volume 82.4 fl (80-100); Nucleated Red Blood Cells Absolute Auto 0.000 K/mm3 (0.0-0.012); Nucleated Red Blood Cells Perc 0.0 % (0.0-0.2); Platelet Count Result 218 k/mm3 (150-375); Red Blood Count 5.50 M/mm3 (4.2-5.4); White Blood Count 6.3 K/mm3 (4.5-10.0)
[2025-01-05 04:35] LABS: Hemoglobin A1C 6.0 % (<5.7)
[2025-01-05 04:44] LABS: Anion Gap 6 mmol/L (4-12); Blood Urea Nitrogen 14 mg/dL (7-17); Calcium 9.3 mg/dL (8.4-10.2); Carbon Dioxide 29 mmol/L (22-30); Chloride 103 mmol/L (98-107); Cholesterol 223 mg/dL (0-200); Estimated CRCL calculation 52 ml/min; Estimated Glomerular Filt Rate > 60; Glucose 103 mg/dL (65-110); HDL Direct 45 mg/dL; Potassium 4.2 mmol/L (3.4-5.0); Sodium 138 mmol/L (137-145); Triglycerides 275 mg/dL (<150)
--- NOTE | 2025-01-05 06:58 | PM.IMPN ---
Progress Note: A&P Assessment and Plan (1) Brain TIA: Code(s): G45.9 - Transient cerebral ischemic attack, unspecified Status: Acute Assessment and Plan: Last known well was at 9:45 a.m. on 01/04. New deficits of slurred speech and a right facial droop noted at XX on 01/04. Lasted for approximately 15 minutes and symptoms completely resolved. admission for observation and telemetry not candidate for thrombolytics or thrombectomy as the patient's symptoms have resolved CXR, head CT, CTA were unremarkable neurology consulted brain MRI w/wo ordered echo w/Bubble ordered LV chamber mildly enlarged, EF 55-60%, LV septal wall motion related to BBB, G1DD, mild MVR/TVR, MPR neuro checks Q4 monitor daily labs, check lipid panel and A1C start Atorvastatin 40 mg PO, Plavix 75 mg PO, ASA 81 mg consider 30 day event monitoring at discharge (2) Elevated blood pressure reading with diagnosis of hypertension: Code(s): I10 - Essential (primary) hypertension Status: Acute Assessment and Plan: - Patient reports her blood pressure was checked prior to arrival to the emergency department, 110/60. Upon arrival the patient's blood pressure was 175/76. She has no prior history of hypertension. Patient does not sore stress from being here. Plan to monitor blood pressure, if BP increases to a systolic greater than 200 will start hypertension medications. Patient will need outpatient follow-up on her blood pressure. - Patient is on metoprolol for PVCs, will continue. Plan Diet: Regular GI Prophylaxis: n/a DVT Prophylaxis: SCDs IV fluids: None Lines/Tubes: Peripheral IV Code Status: Full code Subjective Date/time seen: 01/05/25 06:58 Interval history: 69 y/o F presents here with inflammatory arthritis, osteoporosis, IBS, GERD, emphysema, and anxiety presents here with slurred speech and a facial droop. 01/05/2025 Review of Systems Review of Systems: All systems reviewed & are unremarkable except as noted in HPI and below Exam Const: General: comfortable and no acute distress Other: , female, nontoxic appearance HENMT: Face/Nose/Sinus: Normal nares present Mouth: Yes moist mucous membranes Eyes: General: appearance normal, both eyes and all related structures Sclera: sclerae normal Pupils: Equal, round and reactive pupils present EOM: EOMs intact bilaterally Resp: Effort & Inspection: normal respiratory effort Auscultation: clear to auscultation bilaterally Cardio: Rate: regular rate Rhythm: regular rhythm Other: S1-S2 present without murmur, rub, ectopy GI: Other: Abdomen soft, nondistended, nontender. Normoactive bowel sounds in all quadrants. Skin: General skin exam: normal color and no rashes or lesions noted Wounds: no wounds Neuro: Cranial nerves: Yes Equal, round and reactive pupils present Speech: normal speech Motor exam (neuro): 5/5 motor strength present throughout Sensory Exam: normal sensation Other: A&O x4, NIHSS 0 Extrem: General: normal to inspection Psych: Mental Status: mental status grossly normal Affect: normal affect Other: Good insight and judgment, pleasant Objective Data Vital Signs Vital Signs: Vital Signs - 24 hr 01/04/25 10:58 01/04/25 10:59 01/04/25 10:59 Temperature 97.6 F Pulse Rate 80 80 78 Respiratory Rate 15 17 14 Blood Pressure 175/76 H 170/78 H Pulse Oximetry 97 96 96 Oxygen Delivery Room Air 01/04/25 11:00 01/04/25 11:01 01/04/25 11:03 Temperature Pulse Rate 81 80 77 Respiratory Rate 18 14 15 Blood Pressure 175/76 H 175/76 H Pulse Oximetry 95 98 97 Oxygen Delivery 01/04/25 11:03 01/04/25 11:03 01/04/25 11:15 Temperature Pulse Rate 77 78 76 Respiratory Rate 12 14 Blood Pressure 175/76 H Pulse Oximetry 96 Oxygen Delivery 01/04/25 11:30 01/04/25 11:45 01/04/25 11:46 Temperature Pulse Rate 78 73 74 Respiratory Rate 16 12 19 Blood Pressure 160/84 H Pulse Oximetry 96 95 95 Oxygen Delivery 01/04/25 12:00 01/04/25 12:22 01/04/25 12:30 Temperature Pulse Rate 74 73 70 Respiratory Rate 15 16 12 Blood Pressure Pulse Oximetry 92 94 96 Oxygen Delivery 01/04/25 12:31 01/04/25 12:45 01/04/25 13:07 Temperature Pulse Rate 72 74 76 Respiratory Rate 12 16 17 Blood Pressure 161/88 H Pulse Oximetry 97 97 97 Oxygen Delivery 01/04/25 13:20 01/04/25 13:37 01/04/25 16:00 Temperature 97.5 F L Pulse Rate 72 76 78 Respiratory Rate 16 18 Blood Pressure 161/88 H 188/86 H Pulse Oximetry 96 95 Oxygen Delivery 01/04/25 16:08 01/04/25 20:00 01/04/25 20:00 Temperature Pulse Rate 66 Respiratory Rate Blood Pressure Pulse Oximetry Oxygen Delivery Room Air Room Air 01/04/25 22:00 01/05/25 00:00 01/05/25 00:17 Temperature 97.8 F Pulse Rate 66 72 Respiratory Rate 18 Blood Pressure 165/81 H Pulse Oximetry 95 95 Oxygen Delivery Room Air 01/05/25 04:00 01/05/25 06:00 Temperature 97.7 F Pulse Rate 63 64 Respiratory Rate 16 Blood Pressure 163/77 H Pulse Oximetry 96 Oxygen Delivery Intake/Output Intake/Output: Intake & Output 01/02/25 01/03/25 01/04/25 01/05/25 23:59 23:59 23:59 23:59 Intake Total 890 300 Balance 890 300 Meds/Results Medications: Active Medications Generic Name Dose Route Start Last Admin Trade Name Freq PRN Reason Stop Dose Admin Acetaminophen 650 mg 01/04/25 13:04 Acetaminophen 325 Mg Tablet PO Q6H PRN Mild Pain (1-3) or Fever Hydrocodone Bitart/Acetaminophen 1 tab 01/04/25 16:45 Hydrocodone/Acetaminophen (*Crx) 5-325 Mg Tablet PO Q4-6H [facility] Alprazolam 1 mg 01/04/25 21:00 01/04/25 20:24 Alprazolam (*Crx) 0.5 Mg Tablet PO 1 mg [facility] Administration Aspirin 81 mg 01/05/25 09:00 Aspirin 81 Mg Enteric Tablet PO QAM [facility] Atorvastatin Calcium 40 mg 01/04/25 13:15 01/04/25 16:49 Atorvastatin 40 Mg Tablet PO 40 mg DAILY [facility] Administration Clopidogrel Bisulfate 75 mg 01/05/25 09:00 Clopidogrel Bisulfate 75 Mg Tablet PO QAM [facility] Ferrous Sulfate 325 mg 01/04/25 16:55 Ferrous Sulfate [address] BY MOUTH Q48H [facility] Loratadine 10 mg 01/05/25 09:00 Loratadine 10 Mg Tablet PO DAILY [facility] Magnesium Oxide 400 mg 01/05/25 09:00 Magnesium Oxide 400 Mg Tablet PO DAILY [facility] Metoprolol Succinate 100 mg 01/05/25 09:00 Metoprolol Succinate Ext Rel 100 Mg Tabcr PO DAILY [facility] Miscellaneous Information 0 each 01/04/25 00:01 Ferrous Sulfate Every Other Day- When Is Next Dose Due? XX 02/03/25 00:00 CLARIFY [facility] Miscellaneous Information 0 each 01/04/25 00:01 [email or web address] Enter As Scheduled Range (Q4-6) Please Change To Prn Or Make Scheduled Order Withou XX 02/03/25 00:00 CLARIFY [facility] Ondansetron HCl 4 mg 01/04/25 13:04 Ondansetron Hcl Odt 4 Mg Tablet PO Q6H PRN Nausea And Vomiting Pantoprazole Sodium 40 mg 01/04/25 21:00 01/04/25 20:24 Pantoprazole 40 Mg Tablet PO 40 mg Q12HR [facility] Administration Polyethylene Glycol 17 gm 01/04/25 13:04 Polyethylene Glycol 3350 17 Gm Powd.Pack PO QAM PRN Constipation Tizanidine HCl 1 mg 01/04/25 16:45 01/04/25 17:27 Tizanidine Hcl 1 Mg Tablet PO 1 mg HS PRN Administration muscle spasticity Vitamin D 25 mcg 01/05/25 09:00 Cholecalciferol (Vitamin D3) 25 Mcg (1,000 Units) Tablet PO DAILY [facility] Radiology Results: ITS Impressions Head CT 01/04/25 10:55 IMPRESSION: 1. No acute intracranial hemorrhage. No mass effect. Head/Neck CTA 01/04/25 10:57 IMPRESSION: 1. Unremarkable CTA of the brain Chest X-Ray 01/04/25 11:59 IMPRESSION: 1.There is a 1.3 cm pulmonary nodule in the left midlung. A chest CT is recommended. 2. Small opacities in the lower lungs. Differential includes atelectasis/scarring or infiltrates. Labs Labs: Laboratory Results - last 24 hr 01/04/25 01/04/25 01/04/25 10:39 10:43 10:49 WBC 8.0 RBC 5.44 H Hgb 13.9 Hct 44.3 MCV 81.4 MCH 25.6 L MCHC 31.4 L RDW 14.0 Plt Count 208 MPV 10.4 Immature Gran % (Auto) 0.2 Neut % (Auto) 65.5 Lymph % (Auto) 19.2 [place] % (Auto) 13.0 H Eos % (Auto) 0.9 Baso % (Auto) 1.2 Lymph # (Auto) 1.54 [place] # (Auto) 1.0 H Eos # (Auto) 0.1 Baso # (Auto) 0.1 Abs Immat Gran (auto) 0.02 Absolute Neuts (auto) 5.2 Absolute Nucleated RBC 0.000 Nucleated RBC % 0.0 PT 13.2 INR 1.0 APTT 25.1 Sodium 138 Potassium 5.0 Chloride 103 Carbon Dioxide 27 Anion Gap 8 BUN 20 H Creatinine 0.74 0.90 Estim Creat Clear Calc Not Reportable Not Reportable Estimated GFR > 60 > 60 Glucose 100 POC Capillary Glucose 107 H Hemoglobin A1c Calcium 9.5 Total Bilirubin 0.4 AST 39 H ALT 26 Alkaline Phosphatase 90 Troponin I < 0.012 Total Protein 7.6 Albumin 4.5 Triglycerides Cholesterol LDL Cholesterol Direct HDL Direct 01/05/25 03:54 WBC 6.3 RBC 5.50 H Hgb 13.9 Hct 45.3 MCV 82.4 MCH 25.3 L MCHC 30.7 L RDW 13.9 Plt Count 218 MPV 10.5 H Immature Gran % (Auto) 0.3 Neut % (Auto) 59.5 Lymph % (Auto) 23.9 [place] % (Auto) 13.1 H Eos % (Auto) 2.1 Baso % (Auto) 1.1 Lymph # (Auto) 1.51 [place] # (Auto) 0.8 H Eos # (Auto) 0.1 Baso # (Auto) 0.1 Abs Immat Gran (auto) 0.02 Absolute Neuts (auto) 3.8 Absolute Nucleated RBC 0.000 Nucleated RBC % 0.0 PT INR APTT Sodium 138 Potassium 4.2 Chloride 103 Carbon Dioxide 29 Anion Gap 6 BUN 14 D Creatinine 0.68 L Estim Creat Clear Calc 52 Estimated GFR > 60 Glucose 103 POC Capillary Glucose Hemoglobin A1c 6.0 H Calcium 9.3 Total Bilirubin AST ALT Alkaline Phosphatase Troponin I Total Protein Albumin Triglycerides 275 H Cholesterol 223 H LDL Cholesterol Direct 116 HDL Direct 45 Quality VTE Prophylaxis VTE prophylaxis: mechanical ordered
[2025-01-05] MEDS: ASPIRIN 81 MG ENTERIC TABLET PO (09:35)
[2025-01-05] MEDS: ATORVASTATIN 40 MG TABLET PO (09:35)
[2025-01-05] MEDS: CHOLECALCIFEROL (VITAMIN D3) 25 MCG (1,000 UNITS) TABLET PO (09:35)
[2025-01-05] MEDS: METOPROLOL SUCCINATE EXT REL 100 MG TABCR PO (09:35)
[2025-01-05] MEDS: CLOPIDOGREL BISULFATE 75 MG TABLET PO (09:35)
[2025-01-05] MEDS: MAGNESIUM OXIDE 400 MG TABLET PO (09:35)
[2025-01-05] MEDS: PANTOPRAZOLE 40 MG TABLET PO (09:36)
[2025-01-05] MEDS: LORATADINE 10 MG TABLET PO (09:36)
--- NOTE | 2025-01-05 12:32 | PM.DS ---
DS: Admitting Diagnosis Discharge Date 01/05/2025 Admitting Diagnosis TIA DS: Discharge Diagnosis Discharge Diagnosis (1) Brain TIA: Code(s): G45.9 - Transient cerebral ischemic attack, unspecified Status: Acute (2) Elevated blood pressure reading with diagnosis of hypertension: Code(s): I10 - Essential (primary) hypertension Status: Acute DS: Summary Hospital Course Reason for hospitalization: Slurred Speech, Facial Droop Hospital Course: 69 y/o F presents here with inflammatory arthritis, osteoporosis, IBS, GERD, emphysema, and anxiety presents here with slurred speech and a facial droop. The patient presents here from work via personal vehicle for further evaluation of stroke-like symptoms on 01/04. She reports a last known well at 9:45 a.m.. She reports she was at work when she developed sudden onset of slurred speech and a right facial droop around 9:50 a.m. She reports the symptoms lasted for approximately 15 minutes and resolved prior to her arrival to the emergency department. She denies a previous history of CVA. However she believes she may have had 2 prior TIAs during which she experienced word-finding difficulty that lasted for approximately 30 seconds and resolved spontaneously. She was not evaluated at that time. Most recent occurrence in 2022. She currently denies any neurological deficits and remains at her baseline. Initial VS at presentation: 97.6? F, HR 80, R 17, 175/76, and 96% on RA. ED workup showed: No leukocytosis, no anemia, normal coags, no significant electrolyte derangements, glucose 107, creatinine 0.9 and GFR >60, initial troponin negative. Head CT showed no acute intracranial hemorrhage or mass effect. Head/neck CTA was unremarkable. CXR showed a 1.3 cm pulmonary nodule in the left mid lung and small opacities in the lower lungs. Neurology consulted regarding Brain TIA. Recommend continuing Plavix, aspirin, and lipitor 40mg daily. Brain MRI obtained and was negative for any acute findings. Patient's symptoms have subsided at this time. Echocardiogram obtained and was unremarkable as well. Neurology cleared patient for discharge with appropriate follow-up in the outpatient setting in their office. They also recommend continuing aspirin, Plavix and atorvastatin. Patient is otherwise hemodynamically stable for discharge at this time. Plan for discharge home. Status at Discharge Functional status at discharge: independent ambulation Overall status at discharge: patient is back to baseline Time Spent with Patient Time attestation: Total time spent providing and/or coordinating discharge services:45 Exam Const: Other: , female, nontoxic appearance Cardio: Other: S1-S2 present without murmur, rub, ectopy GI: Other: Abdomen soft, nondistended, nontender. Normoactive bowel sounds in all quadrants. Neuro: Other: A&O x4, NIHSS 0 Psych: Other: Good insight and judgment, pleasant DS: Data Data Completed and Pending Labs on day of discharge: Labs from last 24 hours 01/05/25 03:54 WBC 6.3 RBC 5.50 H Hgb 13.9 Hct 45.3 MCV 82.4 MCH 25.3 L MCHC 30.7 L RDW 13.9 Plt Count 218 MPV 10.5 H Immature Gran % (Auto) 0.3 Neut % (Auto) 59.5 Lymph % (Auto) 23.9 [place] % (Auto) 13.1 H Eos % (Auto) 2.1 Baso % (Auto) 1.1 Lymph # (Auto) 1.51 [place] # (Auto) 0.8 H Eos # (Auto) 0.1 Baso # (Auto) 0.1 Abs Immat Gran (auto) 0.02 Absolute Neuts (auto) 3.8 Absolute Nucleated RBC 0.000 Nucleated RBC % 0.0 Sodium 138 Potassium 4.2 Chloride 103 Carbon Dioxide 29 Anion Gap 6 BUN 14 D Creatinine 0.68 L Estim Creat Clear Calc 52 Estimated GFR > 60 Glucose 103 Hemoglobin A1c 6.0 H Calcium 9.3 Triglycerides 275 H Cholesterol 223 H LDL Cholesterol Direct 116 HDL Direct 45 Discharge Plan Discharge Attending physician on discharge: Ana Rosa Solis Consulting providers: Parth Johnson; Shiv Taylor Discharging Clinician: Shiv Taylor Patient Disposition: Home Activity: no straining Diet: heart healthy Discharge Instructions: Take all medications as prescribed even if feeling better. You will be prescribed Plavix 75mg and Aspirin 81mg for 3 weeks. Eat well balanced meals and stay hydrated Strict bleeding precautions since you are being started on Plavix including shaving with an electric razor, holding pressure for greater than 20 minutes for injury, protection of had with any falls, etc. Follow-up with neurology in 6-8 weeks Change positions slowly taking a break in between each position change If you should experience any chest pain, shortness of breath, temps >100.4 or any other worrisome symptoms please follow up with your PCP come back to the hospital Follow up with your primary in 1 weeks It has been a pleasure taking care of you thank you for using our services Patient Instructions: Antibiotic Form Patient Language: Korean Stand Alone Forms: General Discharge Information, Work/School Release IP Follow-up/Referrals: Yvette,Jurgen Hills MD [Primary Care Provider] - Waqas Fields MD [Physician] - Discharge Medications: New clopidogrel [Plavix] 75 mg tablet 75 mg PO DAILY 21 Days Qty: 21 0RF aspirin 81 mg tablet 81 mg PO DAILY 21 Days Qty: 21 0RF atorvastatin [Lipitor] 40 mg tablet 40 mg PO DAILY 30 Days Qty: 30 0RF Continued metoprolol succinate 100 mg tablet extended release 24 hr 100 mg PO DAILY loratadine [Claritin] 10 mg tablet 10 mg PO DAILY alprazolam [Xanax] 0.5 mg tablet 1 mg PO HS hydrocodone-acetaminophen 5-325 mg tablet 1 tablet PO Q4-6H omeprazole 40 mg capsule,delayed release(DR/EC) 40 mg PO DAILY tizanidine 2 mg tablet 1 mg PO HS PRN (Reason: muscle spasticity) magnesium citrate 100 mg capsule 500 mg PO DAILY ferrous sulfate 325 mg (65 mg iron) tablet 325 mg PO EVERY OTHER DAY cholecalciferol (vitamin D3) 25 mcg (1,000 unit) capsule 25 mcg PO DAILY Date of admission: 01/04/25 12:52 Primary Care Provider: YvetteJurgen Admitting Provider: Kulwant Michelle Attending physician on admission: Kulwant Michelle Condition: Stable Quality VTE Prophylaxis VTE prophylaxis: mechanical ordered
--- NOTE | 2025-01-05 12:59 | P.CONNEU_ITS ---
Assessment and Plan Assessment and plan (1) Brain TIA: Code(s): G45.9 - Transient cerebral ischemic attack, unspecified Status: Acute (2) Inflammatory arthritis: Code(s): M19.90 - Unspecified osteoarthritis, unspecified site Status: Acute Plan As mentioned above since she has had a similar episode which involved her speech 2 years ago. Currently her MRI of the brain shows no acute stroke. Some degree of superficial atrophy and minor small amount of white matter disease was noted. LDL was 116. She is currently on aspirin and Plavix and Lipitor 40 mg a day. She was on a statin that was stopped for some reason about a year ago. She gathers that her lipid has become normal and hence she was taken off. IV advised her to continue this medication after 3 months she can go down to aspirin and atorvastatin 40 mg a day however a follow-up lipid profile is recommended to try and keep the LDL under 65 a peripherally around 50. I shall be glad to see her for follow-up in my office or she can follow up with her own family physician with instructions mention here. She has any further stroke- like symptoms he must immediately come to nearest emergency room. Consult date: 01/05/25 HPI: Aleyda Tyson is a 69 year old female who presented to the hospital 01/04/2025 with symptoms of slurring of the speech and drooping of the right side of the face. Symptoms lasted for 15 minutes or so before resolving. After that she has not had any similar symptoms. She has had a similar symptom involving speech only about 2 years ago. At this time the patient asymptomatic and denies any headache or diplopia or difficulty with some upper lower limbs. She is able to ambulate. Her daughter was present at the time of the evaluation. Patient has twin daughters were close to her. She lives by herself. When she presented to the emergency room a CT scan of the brain and CT angiogram of the head and neck were performed these were within normal range. LDL was 116. MRI of the brain was performed which was essentially normal. There are some superficial atrophy and minimal white matter changes noted. She has not had recurrence of the symptoms after admission. Review of Systems 2 Review of Systems: All systems reviewed & are unremarkable except as noted in HPI and below PMFSH Past Medical History Medical History Inflammatory arthritis Osteoporosis IBS (irritable bowel syndrome) GERD (gastroesophageal reflux disease) Arthritis Anxiety Allergies Surgical History Surgical History No pertinent past surgical history Family History Family History Other Depression Diabetes mellitus Heart disease Hypertension Social History Social History Smoking packs per day: 1 Smoking cigarettes per day: 20.0 Years smoked: 20 Smoking pack-years: 20.00 Smoking status: Former smoker Alcohol intake: never Substance use: never Substance use type: does not use Lack of Transportation: No Lack of Food: Never True Current Housing: I Have Housing Concerned About Future Housing: No Difficulty Paying Gas/Electric Bills: No Difficulty Paying for Meds: No Currently Unemployed: No Education: High School Diploma/GED Difficulty w/ Childcare or Family Care: No Living arrangements: with family Gender identity (if verbalized by the patient): Female Spiritual care concerns: No Meds Home Medications and Allergies Home Medications ?Medication ?Instructions ?Recorded ?Confirmed ?Type alprazolam 0.5 mg tablet (Xanax) 1 mg PO HS 04/30/23 01/04/25 History hydrocodone 5 mg-acetaminophen 325 1 tablet PO Q4-6H pain 04/30/23 01/04/25 History mg tablet loratadine 10 mg tablet (Claritin) 10 mg PO DAILY 04/30/23 01/04/25 History metoprolol succinate 100 mg 100 mg PO DAILY 04/30/23 01/04/25 History tablet,extended release 24 hr omeprazole 40 mg capsule,delayed 40 mg PO DAILY 04/30/23 01/04/25 History release cholecalciferol (vitamin D3) 25 25 mcg PO DAILY 01/04/25 01/04/25 History mcg (1,000 unit) capsule ferrous sulfate 325 mg (65 mg 325 mg PO EVERY OTHER DAY 01/04/25 01/04/25 History iron) tablet magnesium citrate 100 mg capsule 500 mg PO DAILY 01/04/25 01/04/25 History tizanidine 2 mg tablet 1 mg PO HS PRN muscle spasticity 01/04/25 01/04/25 History aspirin 81 mg tablet 81 mg PO DAILY 3 weeks #21 tabs 01/05/25 Rx clopidogrel 75 mg tablet (Plavix) 75 mg PO DAILY 3 weeks #21 tabs 01/05/25 Rx Allergies Allergy/AdvReac Type Severity Reaction Status Date / Time Sulfa (Sulfonamide Allergy Severe Anaphylaxis Verified 01/04/25 16:52 Antibiotics) oxycodone Allergy Mild Confusion Verified 01/04/25 16:52 meloxicam Allergy Mild Rash Uncoded 01/04/25 16:53 Vital Signs Vital Signs - 24 hr 01/04/25 13:07 01/04/25 13:20 01/04/25 13:37 Temperature 97.5 F L Pulse Rate 76 72 76 Respiratory Rate 17 16 18 Blood Pressure 161/88 H 188/86 H Pulse Oximetry 97 96 95 Oxygen Delivery 01/04/25 16:00 01/04/25 16:08 01/04/25 20:00 Temperature Pulse Rate 78 66 Respiratory Rate Blood Pressure Pulse Oximetry Oxygen Delivery Room Air 01/04/25 20:00 01/04/25 22:00 01/05/25 00:00 Temperature 97.8 F Pulse Rate 66 72 Respiratory Rate 18 Blood Pressure 165/81 H Pulse Oximetry 95 Oxygen Delivery Room Air 01/05/25 00:17 01/05/25 04:00 01/05/25 06:00 Temperature 97.7 F Pulse Rate 63 64 Respiratory Rate 16 Blood Pressure 163/77 H Pulse Oximetry 95 96 Oxygen Delivery Room Air 01/05/25 09:35 Temperature Pulse Rate 64 Respiratory Rate Blood Pressure Pulse Oximetry Oxygen Delivery Exam 2 Const: General: cooperative, well developed and alert O rientation/consciousness: oriented to person, oriented to place and oriented to time HENMT: Head: atraumatic Mouth: Yes oropharynx normal Eyes: Alignment and Position: position normal Pupils: Equal, round and reactive pupils present EOM: EOMs intact bilaterally Neck: Neck: supple Resp: Effort & Inspection: normal respiratory effort Cardio: Rhythm: regular rhythm Skin: General skin exam: normal color Neuro: Cranial nerves: Yes CN's II-XII intact bilaterally, Yes facial sensation intact/muscles of mastication intact, Yes Equal, round and reactive pupils present, Yes Bilaterally intact EOM present, Yes Nystagmus not present, Yes facial symmetry, Yes Midline tongue present, Yes Symmetric palate elevation present and Yes Ability to bilaterally elevate shoulders present Cognition (Neuro): normal cognition Speech: normal speech Gait exam (Neuro): Normal gait present Motor exam (neuro): 5/5 motor strength present throughout, Motor fasciculations not present, Normal motor muscle tone present throughout, Motor abnormalities not present and Tremors during motor activity present Sensory Exam: normal sensation Coordination: [id number] test normal and Normal rapid alternating movements of the distal upper extremity present (Neuro) Psych: Mental Status: mental status grossly normal Affect: normal affect Results Labs 01/05/25 03:54 01/05/25 03:54 Labs: Short CBC 01/05/25 Range/Units 03:54 WBC 6.3 (4.5-10.0) K/mm3 Hgb 13.9 (12.0-15.0) g/dL Hct 45.3 (37.0-47.0) % Plt Count 218 (150-375) k/mm3 [facility] 01/05/25 03:54 Sodium 138 Potassium 4.2 Chloride 103 Carbon Dioxide 29 BUN 14 D Creatinine 0.68 L Glucose 103 Calcium 9.3
--- OUTSIDE RECORDS SUMMARY | 2025-01-16 07:21 | XMS_ITS | Encounter Summary ---
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 Gender Identity Not on file Sexual Orientation Not on file documented as of this encounter Miscellaneous Notes * Telephone Encounter - Jerica Morrow MA - 01/09/2025 8:59 AM CDT Tried calling patient if patient returns call please relay providers message * Telephone Encounter - Jurgen Crawford MD - 01/06/2025 4:41 PM CDT I did look over all of her papers from the ER and I think they were very thorough there and checkedeverything I would have checked so I think she can wait till her January 31 appointment * Telephone Encounter - Shy Campos - 01/06/2025 3:24 PM CDT Patient calling back and says she was told to schedule a ER f/u. If pt does need this instead of waiting for 01/31/25 appointment please let me know and I will call and schedule her. I did see the message that said there was nothing else to do and for the pt to keep 01/31/25 appointment. I relayed this information to the pt and she wanted me to check to be sure. documented in this encounter Plan of Treatment Not on file documented as of this encounter Visit Diagnoses Not on filedocumented in this encounter Care Teams Box Toe Maker Relationship Specialty Start Date End Date Jurgen Crawford MD PCP - General 08/22/16 Arielle Duran MD Referring Physician Rheumatology 01/30/22 documented as of this encounter
--- OUTSIDE RECORDS SUMMARY | 2025-01-16 07:21 | XMS_ITS | Clinical Summary ---
Author Organization [facility] Care Team Providers Care Mmd Unit Teacher Name Role Phone Unavailable Primary Care Provider [...]
--- OUTSIDE RECORDS SUMMARY | 2025-01-16 07:22 | XMS_ITS | Clinical Summary ---
Author Organization [facility] Address [address] [place] [address] Care Team Providers Care Cutting And Splicing Supervisor Name Role Phone Jurgen Crawford MD Primary Care Provider Arielle Duran MD Unavailable [phone] Allergies Active Allergy Reactions Criticality Noted Date [...] complex vitamins (VITAMINS B COMPLEX) tablet 0 10/29/19 12 Active cholecalcifero l (VITAMIN D3) 2,000 unit capsule 0 10/29/19 12 Active loratadine 10 mg capsule Active azelastine (ASTELIN) 137 mcg (0.1 %) nasal spray ADMINISTER 2 SPRAYS INTO EACH NOSTRIL 2 TIMES A DAY. 30 mL 11 02/21/20 21 Active naloxone (NARCAN) 4 mg/actuation spray,non-aero carlton Administer 1 spray into affected nostril(s) as needed for opioid reversal or respiratory depression Call 911. Administer a single spray in one nostril. Repeat every 3 minutes as needed if no or minimal response. 1 each 1 01/18/20 22 Active hydroxychloroq uine (PLAQUENIL) 200 mg tablet 05/04/20 23 Active benzonatate (TESSALON) 200 mg capsuleIndicat ions:Acute URI Take 1 capsule (200 mg total) by mouth 3 (three) times a day as needed for cough 30 capsule 06/19/19 24 Active aspirin 81 mg enteric coated tablet Take 1 tablet (81 mg total) by mouth daily 06/28/19 25 026 Active ALPRAZolam (XANAX) 0.5 mg tablet TAKE 1 TABLET BY MOUTH THREE TIMES DAILY NEEDED FOR ANXIETY 90 tablet 5 07/07/19 25 Active tiZANidine (ZANAFLEX) 2 mg tablet Take 1 tablet (2 mg total) by mouth every 6 (six) hours as needed for muscle spasms 60 tablet 3 11/02/19 25 Active metoprolol XL (TOPROL-XL) 100 mg 24 hr tablet TAKE 1 TABLET BY MOUTH EVERY DAY 90 tablet 1 11/18/19 25 025 Active HYDROcodone-ac etaminophen (NORCO) 5-325 mg per tabletIndicati ons:Pain Take 1 tablet by mouth every 6 (six) hours as needed for pain Do not take with alprazolam 30 tablet 12/13/19 25 025 Active omeprazole (PriLOSEC) 40 mg capsule TAKE 1 CAPSULE(40 MG) BY MOUTH DAILY BEFORE BREAKFAST 100 capsule 01/07/20 25 Active omeprazole (PriLOSEC) 40 mg capsule TAKE 1 CAPSULE(40 MG) BY MOUTH DAILY BEFORE BREAKFAST 100 capsule 10/07/19 25 025 Discontinued Active Problems Problem Noted Date Diagnosed Date 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 Discussed [...] with use of humidifier or vaporizer, antihistamines [id number], nasal rinses, Flonase nasal spray, certainly for [...] Encounters Date Type Department Care Team Description 01/06/2025 Telephone [facility] Medical Group Primary Care at [address] [place] [address] Jurgen Crawford MD 01/05/2025 Telephone [facility] Medical Group Primary Care at [address] [place] [address] Jurgen Crawford MD Appointment Request 01/04/2025 Orders Only [facility] Health Information Management [address] [place] [address] Jurgen Crawford MD 01/04/2025 Telephone [facility] Primary Care at [address] [place] [address] Jurgen Crawford MD Medical Question/Miscellaneous 11/01/2024 Orders Only [facility] Primary Care at [address] [address] Jurgen Crawford MD 11/01/2024 Telephone [facility] Primary Care at [address] [address] Jurgen Crawford MD Medication Request from Last 3 Months Immunizations Immunization Administration [...] 2001 c spine surgery Hx 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 Hx Other Medical -ortho Hx Other Medical Abnormal heartb eat Hx [...] on file Legal Sex 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 Gender Identity Not on file Sexual Orientation [...] 07/29/2013 Covid-19 Vaccine (7 - Pfizer risk 2023- season) 2024 04/01/2024, 04/10/2023, 11/22/2021, Additional history exists Influenza Vaccine (#1) 2025 , 02/20/2023, 03/08/2022, Additional history exists Well Visit 65+ 01/27/2025 01/28/2024, 08/01/2023, 01/17/2022, Additional history exists Osteoporosis Screening-Bone Density [...] Procedure Name Priority Date/Time Associated Diagnosis Comments SCAN - LABS 01/04/2025 SCAN - RADIOLOGY/IMAGING 01/04/2025 DEXA AXIAL SKELETON BONE DENSITY 1 OR MORE SITES Schedule Routine, Read Routine (OP Routine) 06/11/2023 SCREENING MAMMOGRAM W ASTER Schedule Routine, Read Routine (OP Routine) 03/19/2022 SERUM HEPATITIS C AB Routine 06/09/2016 9:08 AM ASSOCIATE PROFESSOR OF PHILOSOPHY HM COLONOSCOPY Routine 07/29/2013 from Last 3 Months or Most Recently Relevant to Health Maintenance Results * SCAN - RADIOLOGY/IMAGING (01/04/2025) Anatomical Region Laterality Modality Other Jurgen Crawford MD Edited Result - Final * SCAN - LABS (01/04/2025) Jurgen Crawford MD Final R esult * Dexa Axial Skeleton Bone Density 1 or 2 Site (06/11/2023) Anatomical Region Laterality Modality Body N/A Radiographic Asiya ging us Generic External Data Provider IMG DXA PROCEDURE S Final Result * Screening Mammogram W Aster (03/19/2022) Anatomical Region Laterality Modality Breast N/A Mammography Jurgen Crawford MD IMG MAMMO PROCEDURES Fi nal Result * Serum Hepatitis C ab (06/09/2016 9:08 AM ASSOCIATE PROFESSOR OF PHILOSOPHY) HCV ab NON-REACTI VE NON-REACTI VE CDR HISTORICAL RESULTS Hepatitis signal to cutoff ratio 0.02 <1.00 CDR HISTORICAL RESULTS Serum 06/09/2016 9:08 AM ASSOCIATE PROFESSOR OF PHILOSOPHY Narrative CDR HISTORICAL RESULTS - 06/10/2016 9:00 AM ASSOCIATE PROFESSOR OF PHILOSOPHY Test performed at [facility] [place] [id number] [id number] Director: SILVIA GUERRERO DO,MPH us Historical Provider LAB BLOOD ORDERABLES Tracy l Result CDR HISTORICAL RESULTS * COLONOSCOPY (07/29/2013) Colonoscopy Normal us Historical Provider HEALTH MAINTENANCE Final Result from Last 3 Months or Most Recently Relevant to Health Maintenance Insurance MEDICARE [facility] [employer] MEDICARE SUPPLEMENT MEDICARE [facility] MEDICARE SUPPLEMENT Care Teams Cutting And Splicing Supervisor Relationship Specialty Start Date End Date Jurgen Crawford MD PCP - General 08/22/16 Arielle Duran MD Referring Physician Rheumatology 01/30/22
--- OUTSIDE RECORDS SUMMARY | 2025-01-16 07:22 | XMS_ITS | Patient Health Record ---
Author Organization [facility] Address [address] [place], [place] [id number] Care Team Providers Care Php Lamp Developer Name Role Phone OMEGA OJEDA Unavailable [phone] Jurgen Crawford Unavailable Unavailable Reason For Referral No Information Medications Medication SIG (Take, Route, Frequency, Duration) Notes Start Date End Date Status diclofenac sodium 0.01 MG/MG Topical Gel CUTANEOUS diclofenac sodium 0.01 MG/MG Topical GelOriginal Medicationdiclofenac sodium 0.01 MG/MG Topical Gel *Reorder from Gemvara for eRx and Interaction Alerts* 07/06/2017 Active Plan Of Treatment No Information Insurance Providers Payer Name Payer Address Payer Phone Subscriber Number Group Number Insured Name Patient Relationship to Insured Coverage Start Date Coverage End Date [employer] [address] JONATAN CHISHOLM [phone] [id number] KRISTA GARCIA Self - patient is the insured
--- OUTSIDE RECORDS SUMMARY | 2025-01-16 07:22 | XMS_ITS | Encounter Summary ---
Author Organization [facility] Address [address] [place] [address] Care Team Providers Care Systems Test Engineer Name Role Phone Jurgen Crawford MD Primary Care Provider Arielle Duran MD Unavailable [phone] Reason for Visit * Reason Onset Date Comments Medical Question/Miscellaneous 01/04/2025 Encounter Details Date Type Department Care Team (Late st Contact Info) Description 01/04/2025 Telephone [facility] Primary Care at [address] [place] [address] Jurgen Crawford MD [address] [place] [address] [address] [place] [address] Medical Question/Miscellaneous Social History Tobacco [...] on file Legal 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 * Telephone Encounter - Siobhan Lowery CLT - 01/04/2025 3:43 PM CDT Yung has faxed over ER records and testing performed for today's visit. See media tab. * Telephone Encounter - Yue Harp - 01/04/2025 3:35 PM CDT Medical Records Request Request Type: Patient requesting their prior provider's [place] [facility] [place] First/Last name of previous provider: [facility] Previous provider's phone number: [phone] Previous provider's fax number: na Did the patient's previous provider use [employer] as their electronic health records system? No. I advised the patient to contact their prior provider's office to complete a release of information form and to have the records faxed or mailed to our office. Additional Comments/Concerns: Patient wants to make sure her records from her ED visit on 01/04/2025re received prior to her appt with Dr Crawford on 01/31/2025. Does the message need to be routed? Yes-Action Needed * Telephone Encounter - Jerica Morrow MA - 01/04/2025 1:47 PM CDT Tried calling patient to inform her of providers message if patient calls back please relay providers message. * Telephone Encounter - Jurgen Crawford MD - 01/04/2025 12:41 PM CDT Yes I believe they will send me the reports from the ER thatis important she go to the closest facility for what maybe a stroke and they will know what to do * Telephone Encounter - Rona Villela - 01/04/2025 10:23 AM CDT Medical Question/Miscellaneous Caller???s Concern: patient is calling to let Dr Crawford know she's enroute to [place] [facility] at this time being driven by her boss because she's experiencing slurred speech & face drooping. Patient wants to make sure Dr Crawford will get her ER visit info from [place]. Does message need to be routed? Yes-Action Needed * Telephone Encounter - Lucrecia Quintero - 01/04/2025 10:09 AM CDT Medical [...] on filedocumented in this encounter Care Teams Systems Test Engineer Relationship Specialty Start Date End Date Jurgen Crawford MD PCP - General 08/22/16 Arielle Duran MD Referring Physician Rheumatology 01/30/22 documented as of this encounter
== END 2025-01-05 13:20 | disposition home or self-care (01) | DRG 69 ==
LOC: ANHED 12:41 → ANH2MED 01-05 06:51
PROVIDERS: Student in an Organized Health Care Education/Training Program; Admitting Provider General Practice; Emergency Provider Emergency Medicine; PCP Internal Medicine; Visit Provider Family Medicine
DX: G45.9 Transient cerebral ischemic attack, unspecified (principal); K58.9 Irritable bowel syndrome, unspecified; K21.9 Gastro-esophageal reflux disease without esophagitis; M81.0 Age-related osteoporosis without current pathological fracture; M19.90 Unspecified osteoarthritis, unspecified site; F41.9 Anxiety disorder, unspecified; Z87.891 Personal history of nicotine dependence; Z79.899 Other long term (current) drug therapy
CPT/HCPCS: 36415; 70450; 70496; 70498; 70553; 71045; 80048; 80053; 80061; 82948; 83036; 84484; 85025; 85610; 85730; 93005; 96375; 99285; A9270; A9577; C8929; Q9957; Q9967